=== PATIENT | male | born 1970 | race Caucasian/White ===

== ENCOUNTER 2020-05-10 21:30 | Emergency (ER) | payer MEDICAID, SELFPAY ==
[~2020-05-10] VITALS: Ht 170.2 cm; Wt 99.8 kg
[2020-05-10 23:02] VITALS: BP 114/81; Ht 170.2 cm; Wt 99.8 kg
[2020-05-11 00:14] LABS: BASOPHIL % 0.4 % (0.2-1.5); PLATELET COUNT 234 x10^3mcL (152-348); RED CELL DISTRIBUTION WIDTH 14.5 % (12.1-16.2)
[2020-05-11 00:26] LABS: ALKALINE PHOSPHATASE 74 U/L (46-116); ALT/SGPT 51 U/L (16-63); AST/SGOT 36 U/L (15-37); BILIRUBIN TOTAL 0.9 mg/dL (0.20-1.00); CALCIUM 8.5 mg/dL (8.5-10.1); CARBON DIOXIDE 27.7 mmol/L (21-32); CHLORIDE SERUM 99 mmol/L (98-107); CREATININE SERUM 0.9 mg/dL (0.7-1.3); GFR1 > 60 mL/min; GLUCOSE SERUM 105 mg/dL (74-106); POTASSIUM SERUM 4.1 mmol/L (3.5-5.1); SODIUM SERUM 134 mmol/L (136-145); TOTAL PROTEIN, SERUM 8.1 g/dL (6.4-8.2)
[2020-05-11 00:27] LABS: ALBUMIN 3.3 g/dL (3.4-5.0)
== END 2020-05-11 01:08 | disposition home or self-care (01) ==
LOC: ED 21:30
PROVIDERS: Emergency Medicine
DX: U07.1 COVID-19 (principal); Z88.0 Allergy status to penicillin
CPT/HCPCS: J1885; Q0162; U0003